=== PATIENT | male | born 1975 | race Hispanic/Latino ===

== ENCOUNTER 2021-06-16 17:07 | Emergency (ER) | payer OTHER, SELFPAY ==
[2021-06-16] MEDS ORDERED: Acetaminophen 325 MG TAB ONE (18:36)
[2021-06-16] MEDS ORDERED: HYDROcodone/Acetaminophen 5/325 mg Tablet ONE (18:36)
[2021-06-16] MEDS ORDERED: Ibuprofen 800 MG TAB ONE (18:36)
== END 2021-06-16 18:47 | disposition home or self-care (01) ==
LOC: MADERS 17:07
DX: S29.012A Strain of muscle and tendon of back wall of thorax, initial encounter (principal); S16.1XXA Strain of muscle, fascia and tendon at neck level, initial encounter; S80.11XA Contusion of right lower leg, initial encounter; V43.52XA Car driver injured in collision with other type car in traffic accident, initial encounter; E78.00 Pure hypercholesterolemia, unspecified
CPT/HCPCS: 72125; 72128; 72131